=== PATIENT | female | born 1960 | race Caucasian/White ===

== ENCOUNTER 2016-12-20 12:31 | Inpatient (IN) | payer BC, MEDICAID ==
[~2016-12-20] VITALS: Ht 152.4 cm; Wt 51.3 kg
[2016-12-20] MEDS ORDERED: VENL150C PO (13:19)
[2016-12-20] MEDS ORDERED: LEVO88TA4 PO (13:19)
[2016-12-20 13:20] LABS: HEMOGLOBIN 12.7 g/dL (11.7-16.4)
[2016-12-20] MEDS ORDERED: SODIUM CHLORIDE FLUSH 10ML SYR IVF ONE (13:30)
[2016-12-20] MEDS ORDERED: SODIUM CHLORIDE 0.9% 1,000ML IVBOLUS ONE (13:30)
[2016-12-20 13:32] LABS: BLOOD UREA NITROGEN 4 mg/dL (7-18)
[2016-12-20 13:43] LABS: IS PT STATUS REG ER OR PRE ER? YES
[2016-12-20] MEDS ORDERED: POTASSIUM CHLORIDE 20 MEQ TAB.ER.PRT PO STA (13:51)
[2016-12-20] MEDS ORDERED: POTASSIUM CHLORIDE 20 MEQ TAB.ER.PRT PO ONE ×2 (14:00→15:30)
[2016-12-20] MEDS ORDERED: POTASSIUM CHLORIDE 40 MEQ in SODIUM CHLORIDE 0.9% 500 ML IV ONE (14:30)
[2016-12-20] MEDS ORDERED: POTASSIUM CHLORIDE 20 MEQ TAB.ER.PRT ONE (14:39)
[2016-12-20] MEDS ORDERED: MAGNESIUM SULFATE PMX 2GM/50ML 50 ML IV ONE ×2 (15:30→20:00)
[2016-12-20] MEDS ORDERED: NS + 20MEQ KCL 1,000 ML IV SCH (15:31)
[2016-12-20] MEDS ORDERED: OMEP40CA6 PO (15:46)
[2016-12-20] MEDS ORDERED: POLYETHYLENE GLYCOL 17 GM PACKET PO PRN (16:00)
[2016-12-20] MEDS ORDERED: BISACODYL 10 MG SUPP PR PRN (16:00)
[2016-12-20] MEDS ORDERED: MORPHINE SULFATE 4 MG/ML, 1ML IVPush PRN (16:00)
[2016-12-20] MEDS ORDERED: ENALAPRILAT 1.25 MG/ML, 2ML IVPush PRN (16:00)
[2016-12-20] MEDS ORDERED: DOCUSATE 100 MG CAPSULE PO PRN (16:00)
[2016-12-20] MEDS ORDERED: ACETAMINOPHEN 325 MG TABLET PO PRN (16:00)
[2016-12-20] MEDS ORDERED: ONDANSETRON ODT 4 MG PO PRN (16:00)
[2016-12-20 16:35] VITALS: BP 119/79
[2016-12-20] MEDS: NICOTINE 7 MG/24 HR PATCH.TD24 TD SCH (17:10)
[2016-12-20] MEDS: HEPARIN 5,000 UNITS/ML, 1ML SQ SCH ×2 (17:30→23:58)
[2016-12-20 18:53] VITALS: BP 106/75
[2016-12-20 19:30] LABS: BLOOD UREA NITROGEN 3 mg/dL (7-18)
[2016-12-20 20:05] LABS: IS PT STATUS REG ER OR PRE ER? NO
[2016-12-20] MEDS: DOXYCYCLINE 100MG TABLET PO SCH (20:10)
[2016-12-20] MEDS ORDERED: DIPHENHYDRAMINE 50 MG CAPSULE PO PRN (20:30)
[2016-12-20] MEDS: ONDANSETRON 2MG/ML, 2ML IVP PRN (21:39)
[2016-12-21 01:59] LABS: IS PT STATUS REG ER OR PRE ER? NO
[2016-12-21 02:03] VITALS: BP 97/63
[2016-12-21] MEDS: ZOLPIDEM 5MG TABLET PO PRN ×2 (02:04→21:05)
[2016-12-21 05:19] LABS: BLOOD UREA NITROGEN 3 mg/dL (7-18)
[2016-12-21 05:21] LABS: HEMOGLOBIN 9.8 g/dL (11.7-16.4)
[2016-12-21 06:53] VITALS: BP 104/67
[2016-12-21] MEDS ORDERED: POTASSIUM CHLORIDE 20 MEQ in SODIUM CHLORIDE 0.9% 250 ML IV ONE ×2 (07:30→12:30)
[2016-12-21] MEDS: DOXYCYCLINE 100MG TABLET PO SCH ×2 (08:51→21:05)
[2016-12-21] MEDS: HEPARIN 5,000 UNITS/ML, 1ML SQ SCH ×3 (08:51→23:40)
[2016-12-21] MEDS: LEVOTHYROXINE 88 MCG TABLET PO SCH (08:51)
[2016-12-21] MEDS: VENLAFAXINE 75 MG CAP ER PO SCH (08:51)
[2016-12-21] MEDS: ONDANSETRON 2MG/ML, 2ML IVP PRN ×2 (09:34→17:32)
[2016-12-21] MEDS ORDERED: OMNIPAQUE 350 MG/ML, 100ML BOTTLE ONE (10:41)
[2016-12-21 11:17] LABS: BLOOD UREA NITROGEN 3 mg/dL (7-18)
[2016-12-21] MEDS: NS + 20MEQ KCL 1,000 ML IV SCH ×2 (12:59→23:40)
[2016-12-21 13:13] VITALS: BP 99/65
[2016-12-21] MEDS: NICOTINE 7 MG/24 HR PATCH.TD24 TD SCH (16:24)
[2016-12-21 16:48] LABS: BLOOD UREA NITROGEN 2 mg/dL (7-18)
[2016-12-21 20:00] VITALS: BP 112/72
[2016-12-21 22:23] LABS: BLOOD UREA NITROGEN 1 mg/dL (7-18)
[2016-12-22 01:42] VITALS: BP 107/72
[2016-12-22 04:10] VITALS: BP 115/76
[2016-12-22 05:17] LABS: BLOOD UREA NITROGEN 1 mg/dL (7-18)
[2016-12-22] MEDS ORDERED: POTASSIUM PHOSPHATE 44 MEQ in SODIUM CHLORIDE 0.9% 500 ML IV ONE (07:00)
[2016-12-22 07:03] VITALS: BP 108/67
[2016-12-22] MEDS: VENLAFAXINE 75 MG CAP ER PO SCH (09:00)
[2016-12-22] MEDS: POTASSIUM CHLORIDE 20 MEQ TAB.ER.PRT PO SCH ×2 (09:19→21:28)
[2016-12-22] MEDS: DOXYCYCLINE 100MG TABLET PO SCH ×2 (09:19→21:28)
[2016-12-22] MEDS: LEVOTHYROXINE 88 MCG TABLET PO SCH (09:19)
[2016-12-22] MEDS: HEPARIN 5,000 UNITS/ML, 1ML SQ SCH ×2 (09:20→16:00)
[2016-12-22 10:18] LABS: HEMOGLOBIN 9.6 g/dL (11.7-16.4)
[2016-12-22] MEDS: ONDANSETRON 2MG/ML, 2ML IVP PRN (10:39)
[2016-12-22] MEDS: NS + 20MEQ KCL 1,000 ML IV SCH (11:59)
[2016-12-22] MEDS: MULTIVITAMIN 1 TABLET PO SCH (12:00)
[2016-12-22] MEDS: THIAMINE 100 MG in SODIUM CHLORIDE 0.9% 50 ML IV SCH (12:00)
[2016-12-22 13:01] VITALS: BP 119/83
[2016-12-22 14:12] LABS: OCCBLD OBC PASS
[2016-12-22] MEDS: NICOTINE 7 MG/24 HR PATCH.TD24 TD SCH (16:00)
[2016-12-22] MEDS: METRONIDAZOLE PMX 500MG/100ML 100 ML IV SCH (16:56)
[2016-12-22 19:34] VITALS: BP 100/66
[2016-12-23] MEDS: NS + 20MEQ KCL 1,000 ML IV SCH ×2 (00:37→16:59)
[2016-12-23] MEDS: HEPARIN 5,000 UNITS/ML, 1ML SQ SCH ×3 (00:38→16:00)
[2016-12-23] MEDS: ZOLPIDEM 5MG TABLET PO PRN ×2 (00:38→23:32)
[2016-12-23] MEDS: METRONIDAZOLE PMX 500MG/100ML 100 ML IV SCH ×2 (00:38→09:46)
[2016-12-23 01:19] VITALS: BP 101/66
[2016-12-23 05:34] LABS: HEMOGLOBIN 8.9 g/dL (11.7-16.4)
[2016-12-23 05:58] LABS: ASPARTATE AMINO TRANSFERASE 45 U/L (15-37); BLOOD UREA NITROGEN 1 mg/dL (7-18)
[2016-12-23 06:52] VITALS: BP 105/70
[2016-12-23] MEDS ORDERED: CALCIUM GLUCONATE 4.6 MEQ in SODIUM CHLORIDE 0.9% 50 ML IV ONE (07:30)
[2016-12-23] MEDS ORDERED: POTASSIUM PHOSPHATE 44 MEQ in SODIUM CHLORIDE 0.9% 500 ML IV ONE (07:30)
[2016-12-23] MEDS ORDERED: MAGNESIUM SULFATE PMX 2GM/50ML 50 ML IV ONE ×2 (07:30→20:00)
[2016-12-23] MEDS: DOXYCYCLINE 100MG TABLET PO SCH (08:00)
[2016-12-23] MEDS: MULTIVITAMIN 1 TABLET PO SCH (08:00)
[2016-12-23] MEDS: LEVOTHYROXINE 88 MCG TABLET PO SCH (08:01)
[2016-12-23] MEDS: VENLAFAXINE 75 MG CAP ER PO SCH (08:01)
[2016-12-23] MEDS ORDERED: metroNIDAZOLE 50 MG/ML ORAL.SUSP PO SCH (10:30)
[2016-12-23] MEDS: THIAMINE 100 MG in SODIUM CHLORIDE 0.9% 50 ML IV SCH (13:04)
[2016-12-23 13:06] VITALS: BP 112/78
[2016-12-23] MEDS: NICOTINE 7 MG/24 HR PATCH.TD24 TD SCH (16:00)
[2016-12-23] MEDS ORDERED: metroNIDAZOLE 500 MG TABLET PO SCH (16:00)
[2016-12-23 18:52] VITALS: BP 126/85
[2016-12-23] MEDS: metroNIDAZOLE 500 MG TABLET PO SCH (23:32)
[2016-12-24 00:57] VITALS: BP 115/77
[2016-12-24] MEDS: NS + 20MEQ KCL 1,000 ML IV SCH ×2 (02:41→15:51)
[2016-12-24 06:09] LABS: ASPARTATE AMINO TRANSFERASE 37 U/L (15-37); BLOOD UREA NITROGEN 1 mg/dL (7-18)
[2016-12-24 07:45] VITALS: BP 116/81
[2016-12-24] MEDS: HEPARIN 5,000 UNITS/ML, 1ML SQ SCH ×3 (08:00→15:51)
[2016-12-24] MEDS: MULTIVITAMIN 1 TABLET PO SCH (09:00)
[2016-12-24] MEDS: VENLAFAXINE 75 MG CAP ER PO SCH (09:00)
[2016-12-24] MEDS: LEVOTHYROXINE 88 MCG TABLET PO SCH (09:26)
[2016-12-24] MEDS: metroNIDAZOLE 500 MG TABLET PO SCH ×3 (09:26→22:24)
[2016-12-24] MEDS: THIAMINE 100 MG in SODIUM CHLORIDE 0.9% 50 ML IV SCH (10:31)
[2016-12-24 15:26] VITALS: BP 130/89
[2016-12-24] MEDS: POTASSIUM ACID PHOSPHATE 500 MG TABLET.SOL PO SCH ×2 (15:51→22:24)
[2016-12-24] MEDS: NICOTINE 7 MG/24 HR PATCH.TD24 TD SCH (15:52)
[2016-12-24 18:56] VITALS: BP 110/70
[2016-12-24] MEDS: ZOLPIDEM 5MG TABLET PO PRN (22:32)
[2016-12-25] MEDS: NS + 20MEQ KCL 1,000 ML IV SCH (02:42)
[2016-12-25 04:00] VITALS: BP 138/88
[2016-12-25 05:56] LABS: ASPARTATE AMINO TRANSFERASE 28 U/L (15-37)
[2016-12-25 05:57] LABS: BLOOD UREA NITROGEN < 1 mg/dL (7-18)
[2016-12-25] MEDS: POTASSIUM ACID PHOSPHATE 500 MG TABLET.SOL PO SCH ×4 (06:07→21:08)
[2016-12-25] MEDS: LEVOTHYROXINE 88 MCG TABLET PO SCH (06:07)
[2016-12-25 07:20] VITALS: BP 135/86
[2016-12-25] MEDS ORDERED: POTASSIUM CHLORIDE 20 MEQ TAB.ER.PRT PO ONE (07:30)
[2016-12-25] MEDS: HEPARIN 5,000 UNITS/ML, 1ML SQ SCH ×4 (08:00→23:59)
[2016-12-25] MEDS: MULTIVITAMIN 1 TABLET PO SCH (08:23)
[2016-12-25] MEDS: metroNIDAZOLE 500 MG TABLET PO SCH ×3 (08:23→21:08)
[2016-12-25] MEDS: VENLAFAXINE 75 MG CAP ER PO SCH (08:23)
[2016-12-25] MEDS: NS + 40MEQ KCL 1,000 ML IV SCH (09:46)
[2016-12-25] MEDS: THIAMINE 100 MG in SODIUM CHLORIDE 0.9% 50 ML IV SCH (09:46)
[2016-12-25 13:11] VITALS: BP 134/86
[2016-12-25] MEDS: NICOTINE 7 MG/24 HR PATCH.TD24 TD SCH (16:00)
[2016-12-25 18:50] VITALS: BP 125/82
[2016-12-25] MEDS: ZOLPIDEM 5MG TABLET PO PRN (21:08)
[2016-12-26 01:36] VITALS: BP 114/77
[2016-12-26] MEDS: NS + 40MEQ KCL 1,000 ML IV SCH (04:52)
[2016-12-26] MEDS: POTASSIUM ACID PHOSPHATE 500 MG TABLET.SOL PO SCH ×2 (04:52→10:27)
[2016-12-26] MEDS: LEVOTHYROXINE 88 MCG TABLET PO SCH (04:52)
[2016-12-26 05:54] LABS: HEMOGLOBIN 10.3 g/dL (11.7-16.4)
[2016-12-26 06:09] LABS: ASPARTATE AMINO TRANSFERASE 25 U/L (15-37); BLOOD UREA NITROGEN 1 mg/dL (7-18)
[2016-12-26] MEDS ORDERED: MAGNESIUM SULFATE PMX 2GM/50ML 50 ML IV ONE (07:30)
[2016-12-26 07:42] VITALS: BP 118/80
[2016-12-26] MEDS: HEPARIN 5,000 UNITS/ML, 1ML SQ SCH (08:00)
[2016-12-26] MEDS: metroNIDAZOLE 500 MG TABLET PO SCH (08:05)
[2016-12-26] MEDS: VENLAFAXINE 75 MG CAP ER PO SCH (08:05)
[2016-12-26] MEDS: MULTIVITAMIN 1 TABLET PO SCH (08:06)
[2016-12-26] MEDS: THIAMINE 100 MG in SODIUM CHLORIDE 0.9% 50 ML IV SCH (10:27)
[2016-12-26] MEDS ORDERED: POTA500T PO (10:31)
[2016-12-26] MEDS ORDERED: MULT1TAB60 PO (10:31)
[2016-12-26] MEDS ORDERED: MAGN400T26 PO (10:31)
[2016-12-26] MEDS ORDERED: METR500T PO (10:31)
[2016-12-26 13:42] VITALS: BP 115/85
== END 2016-12-26 14:43 | disposition home or self-care (01) | DRG 371 ==
LOC: ED 13:53 → EDIP 14:10 → 5SO 16:35 → 4WST 12-21 20:30
PROVIDERS: ADMIT Hospitalist; ATTEND Hospitalist
PROC: 0T9B70Z Drainage of Bladder with Drainage Device, Via Natural or Artificial Opening (ICD-10-PCS; principal; 2016-12-20)
DX: A04.7 Enterocolitis due to Clostridium difficile (principal); K85.90 Acute pancreatitis without necrosis or infection, unspecified; E87.1 Hypo-osmolality and hyponatremia; J06.9 Acute upper respiratory infection, unspecified; E87.6 Hypokalemia; Z66 Do not resuscitate; E83.42 Hypomagnesemia; E86.0 Dehydration; I44.0 Atrioventricular block, first degree; F32.9 Major depressive disorder, single episode, unspecified; F41.9 Anxiety disorder, unspecified; I10 Essential (primary) hypertension; F17.210 Nicotine dependence, cigarettes, uncomplicated; E89.0 Postprocedural hypothyroidism; R62.7 Adult failure to thrive; E83.39 Other disorders of phosphorus metabolism; K76.0 Fatty (change of) liver, not elsewhere classified; J44.9 Chronic obstructive pulmonary disease, unspecified; Z90.710 Acquired absence of both cervix and uterus; Z98.890 Other specified postprocedural states; Z82.49 Family history of ischemic heart disease and other diseases of the circulatory system
CPT/HCPCS: 36415; 71010; 74177; 76700; 80048; 80053; 80076; 81003; 82040; 82272; 83690; 83735; 83880; 84100; 84132; 84439; 84443; 84484; 85025; 87324; 87493; 93005; 96361; 96365; J0610; J1644; J2405; J3411; J3480; Q9967; J3475; J7030; J7040; J7050

== ENCOUNTER 2017-02-19 16:32 | Inpatient (IN) | payer MEDICAID ==
[~2017-02-19] VITALS: Ht 154.9 cm; Wt 47.4 kg
[~2017-02-19 16:32] MED LIST: LEVO88TA4 PO; MAGN400T26 PO; METR500T PO; MULT1TAB60 PO; OMEP40CA6 PO; POTA500T PO; VENL150C PO
[2017-02-19] MEDS ORDERED: FAMOTIDINE 20 MG/2 ML IVP ONE (17:00)
[2017-02-19] MEDS ORDERED: ONDANSETRON 2MG/ML, 2ML IVPush ONE (17:00)
[2017-02-19] MEDS ORDERED: SODIUM CHLORIDE FLUSH 10ML SYR IVF ONE (17:00)
[2017-02-19] MEDS ORDERED: SODIUM CHLORIDE 0.9% 1,000ML IVBOLUS ONE (17:00)
[2017-02-19] MEDS ORDERED: MORPHINE SULFATE 4 MG/ML, 1ML ONE ×3 (17:06→20:41)
[2017-02-19] MEDS ORDERED: FAMOTIDINE 20 MG/2 ML ONE (17:07)
[2017-02-19] MEDS ORDERED: ONDANSETRON 2MG/ML, 2ML ONE ×2 (17:07→17:46)
[2017-02-19 17:45] LABS: ASPARTATE AMINO TRANSFERASE 9 U/L (15-37); BLOOD UREA NITROGEN 9 mg/dL (7-18)
[2017-02-19] MEDS: MORPHINE SULFATE 4 MG/ML, 1ML IVPush PRN ×2 (17:51→20:50)
[2017-02-19] MEDS ORDERED: OMNIPAQUE 350 MG/ML, 100ML BOTTLE ONE (19:00)
[2017-02-19] MEDS ORDERED: VANCOMYCIN PER PHARMACY MC PRN (19:00)
[2017-02-19] MEDS ORDERED: VANCOMYCIN 50 MG/ML ORAL SUSP PO ONE (19:30)
[2017-02-19] MEDS ORDERED: VANCOMYCIN PMX 1GM/200ML 200 ML IV ONE (19:30)
[2017-02-19] MEDS ORDERED: ACETAMINOPHEN 325 MG TABLET PO PRN (20:00)
[2017-02-19] MEDS ORDERED: MAGNESIUM OXIDE 400 MG TABLET PO SCH (21:00)
[2017-02-19 22:04] VITALS: BP 126/83
[2017-02-19] MEDS ORDERED: LEVO100T5 PO (22:32)
[2017-02-19] MEDS ORDERED: ZOLP5TAB PO (22:53)
[2017-02-19] MEDS ORDERED: CHOL500050 PO (22:56)
[2017-02-19] MEDS ORDERED: FOLI-17 PO (22:56)
[2017-02-19] MEDS: VANCOMYCIN 50 MG/ML ORAL SUSP PO SCH (23:05)
[2017-02-19] MEDS: NS + 20MEQ KCL 1,000 ML IV SCH (23:05)
[2017-02-19] MEDS: POTASSIUM ACID PHOSPHATE 500 MG TABLET.SOL PO SCH (23:05)
[2017-02-19] MEDS: ZOLPIDEM 5MG TABLET PO PRN (23:06)
[2017-02-19] MEDS: NICOTINE 14MG/24 HR PATCH.TD24 TD SCH (23:07)
[2017-02-19] MEDS: HEPARIN 5,000 UNITS/ML, 1ML SQ SCH (23:07)
[2017-02-19] MEDS: ONDANSETRON 2MG/ML, 2ML IVPush PRN (23:22)
[2017-02-20] MEDS ORDERED: MORPHINE SULFATE 4 MG/ML, 1ML ONE ×2 (00:27→03:20)
[2017-02-20] MEDS: morphine SULFATE 10 MG/ML, 1ML IVPush PRN ×5 (00:30→19:51)
[2017-02-20 03:27] VITALS: BP 114/74
[2017-02-20] MEDS: HEPARIN 5,000 UNITS/ML, 1ML SQ SCH ×3 (03:42→19:54)
[2017-02-20 04:31] LABS: ASPARTATE AMINO TRANSFERASE 7 U/L (15-37); BLOOD UREA NITROGEN 7 mg/dL (7-18)
[2017-02-20] MEDS: NS + 20MEQ KCL 1,000 ML IV SCH ×3 (05:41→23:35)
[2017-02-20] MEDS: LEVOTHYROXINE 100 MCG TABLET PO SCH (05:41)
[2017-02-20] MEDS: VANCOMYCIN 50 MG/ML ORAL SUSP PO SCH ×4 (05:42→23:35)
[2017-02-20] MEDS: ONDANSETRON 2MG/ML, 2ML IVPush PRN ×4 (05:43→23:42)
[2017-02-20 07:14] VITALS: BP 113/65
[2017-02-20] MEDS ORDERED: LEVOTHYROXINE 88 MCG TABLET PO SCH (09:00)
[2017-02-20] MEDS ORDERED: VENLAFAXINE 75 MG CAP ER PO SCH (09:00)
[2017-02-20] MEDS: MULTIVITAMIN 1 TABLET PO SCH (10:50)
[2017-02-20] MEDS: FOLIC ACID 1 MG TABLET PO SCH (10:50)
[2017-02-20] MEDS: POTASSIUM ACID PHOSPHATE 500 MG TABLET.SOL PO SCH ×3 (10:50→19:51)
[2017-02-20 14:06] VITALS: BP 109/69
[2017-02-20] MEDS ORDERED: POTASSIUM CHLORIDE 40 MEQ in SODIUM CHLORIDE 0.9% 500 ML IV ONE (14:30)
[2017-02-20] MEDS: NICOTINE 14MG/24 HR PATCH.TD24 TD SCH ×2 (19:52→19:54)
[2017-02-20 20:20] VITALS: BP 145/86
[2017-02-20] MEDS: ZOLPIDEM 5MG TABLET PO PRN (23:37)
[2017-02-21 02:55] VITALS: BP 104/65
[2017-02-21] MEDS: HEPARIN 5,000 UNITS/ML, 1ML SQ SCH ×2 (03:06→11:12)
[2017-02-21] MEDS: LEVOTHYROXINE 100 MCG TABLET PO SCH (04:56)
[2017-02-21] MEDS: VANCOMYCIN 50 MG/ML ORAL SUSP PO SCH ×3 (04:56→16:56)
[2017-02-21] MEDS: ONDANSETRON 2MG/ML, 2ML IVPush PRN ×2 (04:56→11:12)
[2017-02-21 05:29] LABS: BLOOD UREA NITROGEN 3 mg/dL (7-18)
[2017-02-21 08:05] VITALS: BP 136/82
[2017-02-21] MEDS: MULTIVITAMIN 1 TABLET PO SCH (10:14)
[2017-02-21] MEDS: FOLIC ACID 1 MG TABLET PO SCH (10:14)
[2017-02-21] MEDS: POTASSIUM ACID PHOSPHATE 500 MG TABLET.SOL PO SCH ×2 (10:14→16:56)
[2017-02-21 13:27] VITALS: BP 151/88
[2017-02-21] MEDS ORDERED: VANC1VIA3 PO (15:06)
[2017-02-21] MEDS ORDERED: NICO1PAT4 TD (15:10)
[2017-02-21] MEDS: NS + 20MEQ KCL 1,000 ML IV SCH (15:39)
[2017-02-26] MEDS ORDERED: ERGOCALCIFEROL 50,000 UNIT CAPSULE PO SCH (09:00)
== END 2017-02-21 18:00 | disposition home or self-care (01) | DRG 871 ==
LOC: ED 18:58 → EDIP 19:29 → 3NW 21:41
PROVIDERS: ATTEND Internal Medicine
DX: A41.4 Sepsis due to anaerobes (principal); E43 Unspecified severe protein-calorie malnutrition; A04.7 Enterocolitis due to Clostridium difficile; E87.1 Hypo-osmolality and hyponatremia; R17 Unspecified jaundice; Z68.1 Body mass index [BMI] 19.9 or less, adult; E03.9 Hypothyroidism, unspecified; E87.6 Hypokalemia; F17.210 Nicotine dependence, cigarettes, uncomplicated; F32.9 Major depressive disorder, single episode, unspecified; F41.9 Anxiety disorder, unspecified; I10 Essential (primary) hypertension; Z82.49 Family history of ischemic heart disease and other diseases of the circulatory system; Z83.49 Family history of other endocrine, nutritional and metabolic diseases; Z86.19 Personal history of other infectious and parasitic diseases; Z90.49 Acquired absence of other specified parts of digestive tract; Z90.710 Acquired absence of both cervix and uterus; Z79.899 Other long term (current) drug therapy
CPT/HCPCS: 36415; 74020; 74177; 80048; 80053; 81001; 83690; 83735; 84100; 85025; 87086; 87324; 89055; 93005; 96374; 96375; 96376; J2405; J3370; J3480; Q9967; J2270; J7030; J7040; S0028

== ENCOUNTER → 2017-09-03 | Outpatient (CLI) | payer MEDICAID ==
[~2017-09-03] MED LIST changes: +CHOL500050 PO; +FOLI-17 PO; +LEVO100T5 PO; +NICO-486 TD; +VANC1VIA3 PO; +ZOLP5TAB PO
== END | disposition home or self-care (01) ==
LOC: RAD 15:17
PROVIDERS: ATTEND Neurological Surgery
DX: M48.54XA Collapsed vertebra, not elsewhere classified, thoracic region, initial encounter for fracture (principal)
CPT/HCPCS: 72072

== ENCOUNTER → 2017-10-04 | Outpatient (CLI) | payer MEDICAID | END | disposition home or self-care (01) | LOC: RAD 13:18 | PROVIDERS: ATTEND Neurological Surgery | DX: M48.54XA Collapsed vertebra, not elsewhere classified, thoracic region, initial encounter for fracture (principal) | CPT/HCPCS: 72072 ==

== ENCOUNTER → 2017-11-22 | Outpatient (CLI) | payer MEDICAID | END | disposition home or self-care (01) | LOC: RAD 13:55 | PROVIDERS: ATTEND Neurological Surgery | DX: M48.54XA Collapsed vertebra, not elsewhere classified, thoracic region, initial encounter for fracture (principal) | CPT/HCPCS: 72072 ==